=== PATIENT | female | born 1950 | race Caucasian/White ===

== ENCOUNTER → 2017-01-23 | Outpatient (CLI) | payer OTHER ==
[~2017-01-23] MED LIST: BIOT1CAP8 PO; CALCTAB5 PO; CYAN100T PO
== END | disposition home or self-care (01) ==
LOC: C.LABSPEC 17:16
PROVIDERS: ATTEND Nurse Practitioner Family
DX: N39.0 Urinary tract infection, site not specified (principal)

== ENCOUNTER → 2017-06-10 | Outpatient (CLI) | payer OTHER ==
--- NOTE | 2017-06-11 13:10 | MAMMOGRAPHY REPORT ---
BILATERAL DIGITAL SCREENING MAMMOGRAM WITH CAD: 06/10/2017 CLINICAL HISTORY: Routine screening. TECHNIQUE: Bilateral CC, MLO and repeat left CC views were obtained. Current study was also evaluate d with a Computer Aided Detection (CAD) system. COMPARISON: Comparison is made to exams dated: 06/02/2015 mammogram, 06/08/2016 mammogram, 06/01/2014 m ammogram, 05/27/2013 mammogram, 05/26/2012 mammogram, and 05/23/2011 mammogram - [facility] enter. BREAST COMPOSITION: There are scattered areas of fibroglandular density in both breasts. FINDINGS: There are minimal vascular calcifications in the breasts. No suspicious mass, architectura l distortion or cluster of suspicious microcalcifications is seen. IMPRESSION: ACR BI-RADS CATEGORY 1: NEGATIVE There is no mammographic evidence of malignancy. A 1 year screening mammogram is recommended. The pa tient will receive written notification of the results. Approximately 10% of breast cancers are not detected with mammography. A negative mammographic report should not delay biopsy if a clinically suggestive mass is present. Trina Campos M.D. ay/:06/10/2017 16:15:31 Digital Product Specialist: Carly MUNOZ(Sofia)(Rylie), [facility] letter sent: Normal 1/2 BI-RADS Code: ACR BI-RADS Category 1: Negative
== END | disposition home or self-care (01) ==
LOC: C.MAMM 15:32
PROVIDERS: ATTEND Family Medicine
DX: Z12.31 Encounter for screening mammogram for malignant neoplasm of breast (principal)

== ENCOUNTER → 2017-11-21 | Outpatient (CLI) | payer OTHER | END | disposition home or self-care (01) | LOC: C.LABSPEC 14:09 | PROVIDERS: ATTEND Urology | DX: N39.0 Urinary tract infection, site not specified (principal) ==

== ENCOUNTER → 2017-11-21 | Outpatient (CLI) | payer OTHER ==
--- NOTE | 2017-11-21 12:22 | DIAGNOSTIC IMAGING REPORT ---
KUB CLINICAL HISTORY: Urinary tract infection. FINDINGS: 2 AP abdominal radiographs are compared to study dated 10/12/2016 and correlated with abdominal CT dated 09/01/2006. There is a nonobstructed abdominal bowel gas pattern noting moderate constipation. This degrades assessment of the renal shadows. A punctate nonobstructing calculus projects over the left lower pole. No additional renal calculi are identified on today's examination. No calcifications are seen along the course of the ureters. There is mild to moderate lumbosacral spondylosis. The bony pelvis appears intact. Sclerotic change is identified in the pubic symphysis. Hernia mesh projects over the upper abdomen. IMPRESSION: 1. Nonobstructed abdominal bowel gas pattern noting moderate colonic fecal retention. This degrades assessment of the renal shadows. 2. A punctate nonobstructing calculus projects over the left lower pole. Electronically signed by: Gustavo Palmer M.D. 11/21/2017 12:21 PM Dictated Date/Time: 11/21/2017 12:19 PM
== END | disposition home or self-care (01) ==
LOC: C.RAD 11:57
PROVIDERS: ATTEND Urology
DX: N39.0 Urinary tract infection, site not specified (principal)

== ENCOUNTER → 2018-06-12 | Outpatient (CLI) | payer OTHER ==
--- NOTE | 2018-06-13 14:35 | MAMMOGRAPHY REPORT ---
BILATERAL DIGITAL SCREENING MAMMOGRAM TOMOSYNTHESIS WITH CAD: 06/12/2018 CLINICAL HISTORY: Routine screening. TECHNIQUE: The study was acquired using full field digital technology and interpreted from soft copy. Breast tomosynthesis in addition to standard 2D mammography was performed. Current study was also ev aluated with a Computer Aided Detection (CAD) system. COMPARISON: Comparison is made to exams dated: 06/10/2017 mammogram, 06/08/2016 mammogram, 06/02/2015 m ammogram, 06/01/2014 mammogram, 05/27/2013 mammogram, and 05/26/2012 mammogram - [facility] enter. BREAST COMPOSITION: There are scattered areas of fibroglandular density in both breasts. FINDINGS: No suspicious masses, calcifications, or areas of architectural distortion are noted in either breast . There has been no significant interval change compared to prior exams. IMPRESSION: ACR BI-RADS CATEGORY 1: NEGATIVE There is no mammographic evidence of malignancy. A 1 year screening mammogram is recommended.( 019) The patient will receive written notification of the results. Some breast cancers are not detected with mammography. A negative mammographic report should not floridalma y biopsy if a clinically suggestive mass is present. Brittney Cook M.D. ah/:06/12/2018 15:48:20 Information Systems Security Analyst: RT Rob(Sofia)(M), [facility] letter sent: Normal 1/2 BI-RADS Code: ACR BI-RADS Category 1: Negative
== END | disposition home or self-care (01) ==
LOC: C.MAMM 15:05
PROVIDERS: ATTEND Family Medicine
DX: Z12.31 Encounter for screening mammogram for malignant neoplasm of breast (principal)

== ENCOUNTER 2018-07-08 08:07 | Emergency (ER) | payer OTHER ==
[~2018-07-08] VITALS: Ht 154.9 cm; Wt 83.9 kg
[2018-07-08 08:08] VITALS: TEMP 36.8; Ht 154.9 cm; Wt 83.9 kg
--- NOTE | 2018-07-08 09:06 | DIAGNOSTIC IMAGING REPORT ---
L-SPINE MIN 4 VIEWS ROUTINE HISTORY: Pain. Neuropathy. Bilateral lumbar radiculitis COMPARISON: None. FINDINGS: There is no fracture. Minimal grade 1 anterolisthesis L5 on S1. This appears to be secondary to degenerative changes of the posterior elements. Degenerative intervertebral this change considered moderate and rather significant L5-S1. IMPRESSION: Moderate to significant degenerative disc changes L5-S1 with a minimal grade 1 anterolisthesis. Remainder the study shows mild degenerative disc change. No acute process. The above report was generated using voice recognition software. It may contain grammatical, syntax or spelling errors. Electronically signed by: Julisu Weaver M.D. 07/08/2018 9:05 AM Dictated Date/Time: 07/08/2018 9:04 AM
[2018-07-08] MEDS ORDERED: MULT-506 PO (09:18)
--- NOTE | 2018-07-08 09:21 | EMERGENCY ROOM VISIT NOTE ---
ED Visit Note First contact with patient: 08:26 I have personally seen and evaluated the patient with the physician custody assistant. I agree with the diagnostic/management decisions and have personally been involved in these decisions and agree with the diagnosis.
[2018-07-08] MEDS ORDERED: TRAM-10 PO ×2 (09:22→09:24)
[2018-07-08 09:32] VITALS: BP 192/85; PULSE 58; O2SAT 98
--- NOTE | 2018-07-08 09:47 | EMERGENCY ROOM VISIT NOTE ---
History First contact with patient: 08:26 Chief Complaint: BACK PAIN Stated Complaint: BACK PAIN, NUMBS MY LEGS History of Present Illness The patient is a 68 year old female who presents to the Emergency Room with complaints of intermittent lower back pain radiating down both legs to the ankles. The patient reports no recent injuries to her back. 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 She does report a history of degenerative disc disease. She has seen a chiropractor many years ago. She denies history of osteoporosis. She has not noticed any recent urinary/bowel incontinence, saddle anesthesias or lower extremity weakness. She reports that ibuprofen does help with her pain, and currently rates her discomfort a 5 out of 10. Review of Systems 10 system review was performed and was negative except for pertinent positives and negatives as indicated in history of present illness Past Medical/Surgical History Medical Problems: (1) Calculus Of Kidney (2) Lumbar radiculitis Surgical Problems: (1) History of hernia repair (2) History of hysterectomy Social History Smoking Status: Never Smoker Alcohol Use: none Marital Status: Occupation Status: employed Current/Historical Medications Scheduled Multivitamin (Multivitamin), 1 TAB PO QAM Scheduled PRN Tramadol (Ultram), 1 TAB PO Q4H PRN for Pain Physical Exam Vital Signs Date Time Temp Pulse Resp B/P (MAP) Pulse Ox O2 Delivery O2 Flow Rate FiO2 07/08/18 08:08 36.8 58 18 210/109 97 Room Air Physical Exam CONSTITUTIONAL: Healthy and well nourished. Alert and oriented X 3 with positive affect. Patient does not appear in any acute distress. HEENT: Normocephalic, atraumatic. Pupils equal, round and reactive. No scleral icterus or conjunctival injection/pallor. NECK: Full active range of motion without discomfort. No nuchal rigidity. RESPIRATORY: Clear to auscultation bilaterally with no wheezing, crackles, rhonchi or stridor. CARDIOVASCULAR: Regular rate and rhythm with no murmurs, rubs or gallops. GASTROINTESTINAL: Bowel sounds present in all quadrants. Abdomen is soft and nontender to palpation. Negative CVA tenderness. MUSCULOSKELETAL: Examination shows tenderness to palpation of bilateral SI joints. Negative logroll bilaterally. Negative straight leg raise bilaterally. Ankle plantar/dorsiflexion strength is 5 out of 5 and symmetric bilaterally. Pedal pulses are intact. INTEGUMENTARY: No rash or other significant dermatologic conditions noted. NEUROLOGIC: No focal neurologic deficits noted. Lower extremity deep tendon reflexes are 2+ and symmetric bilaterally. Medical Decision & Procedures ER Provider Diagnostic Interpretation: My interpretation of lumbar spine x-rays shows notable disc degeneration at L5- S1 with a grade 1-2 spondylolisthesis. No acute compression fracture is noted. Radiologist report is as follows: L-SPINE MIN 4 VIEWS ROUTINE HISTORY: Pain. Neuropathy. Bilateral lumbar radiculitis COMPARISON: None. FINDINGS: There is no fracture. Minimal grade 1 anterolisthesis L5 on S1. This appears to be secondary to degenerative changes of the posterior elements. Degenerative intervertebral this change considered moderate and rather significant L5-S1. IMPRESSION: Moderate to significant degenerative disc changes L5-S1 with a minimal grade 1 anterolisthesis. Remainder the study shows mild degenerative disc change. No acute process. ED Course Patient history and physical exam were performed. Nurse's notes were reviewed. Vital signs were reviewed, showing an elevated blood pressure of 210/109. Patient denies any prior history of hypertension. The patient refused any analgesics. X-rays of spine shows degenerative changes at L5-S1. Findings were discussed with the patient. The patient was encouraged alternate ibuprofen and Tylenol as needed for pain. She will be provided a prescription for Ultram if needed for breakthrough pain. Back pain instructional handouts were provided. The patient was instructed to follow-up with her PCP for recheck. The patient was happy with plan of care, voiced understanding of all discharge instructions, and rated her pain a 4 out of 10 at the conclusion of my exam. The patient was also seen and examined by Dr. Corral, ED attending physician, who agrees with workup and plan of care. Medical Decision Medication Reconcilliation Current Medication List: was personally reviewed by me Blood Pressure Screening Patient's blood pressure: Elevated blood pressure Blood pressure disposition: Referred to PCP Impression Primary Impression: Lumbar radiculitis Additional Impressions: Lumbar degenerative disc disease Elevated blood pressure reading Departure Information Prescriptions Tramadol (Ultram) 50 Mg Tab 1 TAB PO Q4H Y for Pain, #15 TAB For Initial Treatment Prov: Armando Moreno PA 07/08/18 Referrals Stevie Ennis M.D. (PCP) Patient Instructions My [facility] Problem Qualifiers
== END 2018-07-08 09:32 | disposition home or self-care (01) ==
LOC: C.EDB 08:08 → C.EDA 09:32
DX: M54.16 Radiculopathy, lumbar region (principal); M51.37 Other intervertebral disc degeneration, lumbosacral region; R03.0 Elevated blood-pressure reading, without diagnosis of hypertension

== ENCOUNTER 2019-05-16 04:13 | Inpatient (IN) ==
--- OUTSIDE RECORDS SUMMARY | 2019-05-16 04:16 | External Medical Summary | Continuity of Care Document ---
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 Refills: 0 Aspirin EC 325 MG Oral Tablet Delayed Release; as needed , M .D. Refills: 0 Multivitamins TABS , M.D. Refills: 0 Procedures History of Hysterectomy Status: Complete d History of Hernia Repair Status: Complet ed History of Renal Lithotripsy Status: Com pleted Immunizations Immunizations not documented Family History Unknown Family Member Family history of Diabetes Mellitus (V18.0) Status: Active Comments: Family History Family history of Heart Disease (V17.49) Status: Active Comments: Family History Family history of Hypertension (V17.49) Status: Active Comments: Family History Family history of Nephrolithiasis Status: Active Commen ts: Family History Father Family history of emphysema (V17.6) (Z82.5) Status: Active Mother Family history of Heart disease (429.9) (I51.9) Status: Acti ve Social History - Smoking Status Never smoker Plan of Treatment Planned Observations Planned Goals not documented Results No Known Results Results not documented Encounters Appointment; Lukas Tsai M.D. 25-Dec-2018 13:40 Encounter Diagnosis: Problem not documented Appointment; Oliver Campos M.D. 21-Nov-2017 9:00 Encounter Diagnosis: Problem not documented
[2019-05-16] MEDS ORDERED: KETOROLAC 30 MG/ML VIAL IV STA (04:37)
[2019-05-16] MEDS ORDERED: ONDANSETRON INJ 2 MG/ML 2 ML VIAL IV STA (04:37)
[2019-05-16] MEDS ORDERED: SODIUM CHLORIDE 0.9% 1000ML 1,000 ML IV ONE (04:37)
[2019-05-16] MEDS ORDERED: MoRPHine SULFATE 4 MG/ML 1 ML CARP\\VIAL IV STA (04:37)
[2019-05-16 04:48] LABS: Basophils # (auto) 0.02 K/uL (0-0.2); Basophils % (auto) 0.4 %; Eosinophils # (auto) 0.23 K/uL (0-0.5); Eosinophils % (auto) 4.1 %; Hematocrit (blood only) 40.4 % (37-47); Hemoglobin 13.6 g/dL (12.0-16.0); Immature Granulocytes # (auto) 0.01 K/uL (0.00-0.02); Immature Granulocytes % (auto) 0.2 %; Lymphocytes # (auto) 1.19 K/uL (1.2-3.4); Lymphocytes % (auto) 21.3 %; Mean Corpuscular Hgb Conc 33.7 g/dL (32-36); Mean Corpuscular Volume 85.6 fL (80-100); Mean Platelet Volume 9.9 fL (7.4-10.4); Monocytes # (auto) 0.63 K/uL (0.11-0.59); Monocytes % (auto) 11.3 %; Neutrophils # (auto) 3.51 K/uL (1.4-6.5); Neutrophils % (auto) 62.7 %; Platelet Count 188 K/uL (130-400); RDW Coefficient of Variation 13.2 % (11.5-14.5); RDW Standard Deviation 41.1 fL (36.4-46.3); Red Blood Count 4.72 M/uL (4.2-5.4); White Blood Count 5.59 K/uL (4.8-10.8)
[2019-05-16 04:49] LABS: Appearance Urine Cloudy (Clear); Bacteria Urine Automated 4+ (Negative); Bilirubin Urine Negative (Negative); Blood Urine 3+ (Negative); Color Urine Yellow; Epithelial Cell Urine Auto >30 /lpf (0-5); Glucose Urine UA Negative (Negative); Ketones Urine Negative (Negative); Leukocyte Esterase Urine Trace (Negative); Nitrite Urine Positive (Negative); Protein Urine Negative (Negative); RBC Urine Automated >30 /hpf (0-4); Specific Gravity Urine 1.014 (1.000-1.030); Urobilinogen Urine Negative (Negative)
[2019-05-16 05:05] LABS: Alanine Aminotransferase 19 U/L (12-78); Albumin Level 3.7 gm/dl (3.4-5.0); Aspartate Aminotransferase 16 U/L (15-37); BUN Creatinine Ratio 16.2 (10-20); Blood Urea Nitrogen 15 mg/dl (7-18); Calcium 8.8 mg/dl (8.5-10.1); Carbon Dioxide 26 mmol/L (21-32); Chloride 109 mmol/L (98-107); Est GFR (African American) 71.8; Glucose 129 mg/dl (70-99); Potassium 3.9 mmol/L (3.5-5.1); Sodium 140 mmol/L (136-145)
[2019-05-16 05:08] LABS: Alkaline Phosphatase 100 U/L (45-117); Bilirubin,Total 0.5 mg/dl (0.2-1); Globulin 3.7 gm/dl (2.5-4.0); Total Protein 7.4 gm/dl (6.4-8.2)
[2019-05-16] MEDS ORDERED: cefTRIAXone SODIUM 1,000 MG/50 ML BAG IV STA (05:29)
[2019-05-16] MEDS ORDERED: SODIUM CHLORIDE 0.9% 1000ML 1,000 ML IV SCH (05:30)
[2019-05-16] MEDS: TAMSULOSIN HCL 0.4 MG CAP PO SCH (05:57)
--- NOTE | 2019-05-16 06:02 | Emergency Department Note ---
Entered by Deandra Hull acting as a scribe for Flavia Chester DO History of Present Illness General Chief complaint: Flank Pain Stated complaint: POSSIBLE KIDNEY STONE, ABD. PAIN, NAUSEA, VOMITING Time Seen by Provider: 05/16/19 04:23 Source: patient History of Present Illness Onset (ago): hour(s) 5 Location: abdomen Severity: similar to prior episodes Pain Consistency: + constant Maximum Pain Intensity: 8 Quality: + other (Abdominal pain) Associated symptoms: + nausea/vomiting (Positive nausea. Negative vomiting. ) and + other (Positive abdominal pain. Negative dysuria. ) Treatments prior to arrival: none The patient is a 68 year old female who presents to the Emergency Department complaining of constant abdominal pain starting 5 hours ago. The patient reports that she has left sided abdominal pain. She states that she is nauseous. She explains that she has experienced this pain before and believes that she has a kidney stone. She states that when she last had a kidney stone it had to be surgically removed by Dr. Tsai [facility] urologist. She adds that she took no treatments [employer]AL[employer]OCIATE for her abdominal pain. The patient denies vomiting and dysuria. Home Medications Home Medications Medication Instructions Recorded Confirmed Type multivitamin 1 tab PO DAILY 05/16/19 05/16/19 History Allergies Allergy/AdvReac Type Severity Reaction Status Date / Time No Known Allergies Allergy Verified 05/16/19 04:43 Past Med/Surg History Medical History History of kidney stones Surgical History History of hernia repair (Resolved) History of hysterectomy (Resolved) Social History Feels Safe at Home: Yes Smoking Status: Never smoker Review of Systems See HPI for pertinent positives & negatives. and A total of 10 systems reviewed and were otherwise negative Physical Exam Vital Signs Vital Signs - 24 hr 05/16/19 04:18 05/16/19 04:52 05/16/19 05:04 Temperature 36.8 C Temperature Source Oral Sepsis Recent Fever Within 48 Hours No Sepsis New/Unexplained Change in Mental Status No Sepsis Action Taken by Nursing No Action Required Pulse Rate 68 Pulse Rate [Finger] 55 L Pulse Rhythm Regular Pulse Strength Normal Respiratory Rate 24 16 Respiratory Effort / Characteristics Non-Labored Spontaneous Non-Labored Spontaneous Respiratory Depth Normal Normal Respiratory Pattern Regular Blood Pressure 167/95 H Blood Pressure [Right Arm] 152/63 H Blood Pressure Mean 119 Blood Pressure Mean [Right Arm] 92 Blood Pressure Position Sitting Pulse Oximetry 97 92 Oxygen Delivery Method Room Air Room Air Room Air General: Patient appears uncomfortable and is unable to sit still. HEENT: Head - normocephalic and atraumatic Pupils are equal, round, and reactive to light. Extraocular eye muscles are intact, and sclera are anicteric. Nose - moist nasal mucosa without discharge. Mouth - moist buccal mucosa. Oropharynx is nonerythematous and there is no tonsillar exudate or edema noted. Neck: Supple; no JVD, nuchal rigidity, cervical lymphadenopathy. Heart: Regular rate and rhythm. There is a normal S1 and S2 with no murmurs, clicks, or gallops appreciated. Lungs: Clear to auscultation bilaterally with no wheezes, rales, or rhonchi. Abdomen: Soft, completely nontender, nondistended, with good bowel sounds. There are no palpable pulsatile masses or hepatosplenomegaly. There is no guarding, rigidity, or rebound noted. Back: Left CVA tenderness. Extremities: No evidence of cyanosis, clubbing, or edema. There are easily palpable peripheral pulses. Skin: warm and dry with good turgor and no rashes. Course 0432: The patient was evaluated in room A12B, and a complete history and physical examination were performed. Previous electronic medical records were reviewed. An IV lock was initiated and labs were drawn as above. 0448: NSS 1000ml 1000 mls @ 999 mls/hr IV, Toradol 30 mg IV, Zofran 4 mg IV, Morphine Sulfate 4 mg IV. The patient will go for a CT scan of the abdomen/pelvis. 0530: I updated the patient at this time. She states that she is more comfortable at this time. Blood cultures were obtained. 0539: Rocephin 1000 mg in 50 mls @ 100 mls/hr IV, NSS 1000ml 1000 mls @ 125 mls/hr IV. 0540: I discussed the patient's case with Dr. Gregory Patel hospitalist. He will evaluate the patient for further management. Consultations Consultation #1: I discussed the patient's case with Dr. Gregory Patel hospitalist. He will evaluate the patient for further management. Time: 05:40 Administered Medications Sodium Chloride (Nss 1000ml) 1,000 mls @ 125 mls/hr IV .Q8H ANYA Stop: 06/15/19 05:29 Last Admin: 05/16/19 05:40 Dose: 125 mls/hr Documented by: [id number] Tamsulosin HCl (Flomax) 0.4 mg PO DAILY ANYA Stop: 06/15/19 05:44 Last Admin: 05/16/19 05:57 Dose: 0.4 mg Documented by: [id number] Discontinued Medications Sodium Chloride (Nss 1000ml) 1,000 mls @ 999 mls/hr IV .Q1H1M ONE Stop: 05/16/19 05:37 Last Infusion: 05/16/19 05:39 Dose: 0 mls/hr Documented by: [id number] Admin: 05/16/19 04:48 Dose: 999 mls/hr Documented by: [id number] Ceftriaxone Sodium (Rocephin) 1,000 mg in 50 mls @ 100 mls/hr IV NOW STA Stop: 05/16/19 05:58 Last Admin: 05/16/19 05:39 Dose: 100 mls/hr Documented by: [id number] Ketorolac Tromethamine (Toradol) 30 mg IV NOW STA Stop: 05/16/19 04:38 Last Admin: 05/16/19 04:48 Dose: 30 mg Documented by: [id number] Morphine Sulfate (Morphine Sulfate) 4 mg IV NOW STA Stop: 05/16/19 04:38 Last Admin: 05/16/19 04:48 Dose: 4 mg Documented by: [id number] Ondansetron HCl (Zofran) 4 mg IV NOW STA Stop: 05/16/19 04:38 Last Admin: 05/16/19 04:48 Dose: 4 mg Documented by: [id number] Medical Decision Making Differential Diagnosis The patient is a 68 year old female who presents to the ED with constant abdominal pain starting 5 hours ago. Differential diagnosis includes pyelonephritis, ureteral colic and colitis among others. Medical Records Attestation: I reviewed the patient's medical records. Home Medications Current Medication List: was personally reviewed by me Laboratory Data Attestation: I reviewed the patient's lab results. Result diagrams: 05/16/19 04:41 05/16/19 04:41 Lab Results 05/16/19 05/16/19 05/16/19 Range/Units 04:30 04:41 04:41 WBC 5.59 (4.8-10.8) K/uL RBC 4.72 (4.2-5.4) M/uL Hgb 13.6 (12.0-16.0) g/dL Hct 40.4 (37-47) % MCV 85.6 (80-100) fL MCH 28.8 (25-34) pg MCHC 33.7 (32-36) g/dL RDW Std Deviation 41.1 (36.4-46.3) fL RDW Coeff of [place] 13.2 (11.5-14.5) % Plt Count 188 (130-400) K/uL MPV 9.9 (7.4-10.4) fL Immature Gran % (Auto) 0.2 % Neut % (Auto) 62.7 % Lymph % (Auto) 21.3 % [place] % (Auto) 11.3 % Eos % (Auto) 4.1 % Baso % (Auto) 0.4 % Immature Gran # (Auto) 0.01 (0.00-0.02) K/uL Neut # (Auto) 3.51 (1.4-6.5) K/uL Lymph # (Auto) 1.19 L (1.2-3.4) K/uL [place] # (Auto) 0.63 H (0.11-0.59) K/uL Eos # (Auto) 0.23 (0-0.5) K/uL Baso # (Auto) 0.02 (0-0.2) K/uL Sodium 140 (136-145) mmol/L Potassium 3.9 (3.5-5.1) mmol/L Chloride 109 H (98-107) mmol/L Carbon Dioxide 26 (21-32) mmol/L Anion Gap 5.0 (3-11) BUN 15 (7-18) mg/dl Creatinine 0.95 (0.6-1.2) mg/dl Est Cr Clr Drug Dosing Not Reportable Est GFR ( Amer) 71.8 Est GFR (Non-Af Amer) 62.0 BUN/Creatinine Ratio 16.2 (10-20) Glucose 129 H (70-99) mg/dl Calcium 8.8 (8.5-10.1) mg/dl Total Bilirubin 0.5 (0.2-1) mg/dl AST 16 (15-37) U/L ALT 19 (12-78) U/L Alkaline Phosphatase 100 (45-117) U/L Total Protein 7.4 (6.4-8.2) gm/dl Albumin 3.7 (3.4-5.0) gm/dl Globulin 3.7 (2.5-4.0) gm/dl Albumin/Globulin Ratio 1.0 (0.9-2) Urine Color Yellow Urine Appearance Cloudy A (Clear) Urine pH 7.0 (4.5-7.5) Ur Specific [place] 1.014 (1.000-1.030) Urine Protein Negative (Negative) Urine Glucose (UA) Negative (Negative) Urine Ketones Negative (Negative) Urine Blood 3+ H (Negative) Urine Nitrite Positive A (Negative) Urine Bilirubin Negative (Negative) Urine Urobilinogen Negative (Negative) Ur Leukocyte Esterase Trace H (Negative) Urine WBC (Auto) 10-30 H (0-5) /hpf Urine RBC (Auto) >30 H (0-4) /hpf U Hyaline Cast (Auto) 1-5 (0-5) /lpf U Epithel Cells (Auto) >30 H (0-5) /lpf Urine Bacteria (Auto) 4+ H (Negative) Ur Renal Epithelial Cell Not Reportable Imaging Data Radiologist's Impression: Radiology results as stated below per my review and the radiologist's interpretation: CT ABDOMEN & PELVS Without Contrast: 4 mm calculus at or just below the UPJ level on the left side. Mild left hydronephrosis is associated as well as mild left renal enlargement. Slight left perinephrenic stranding. These findings are likely obstructive but would correlate clinically to exclude any superimposed infection. Small cyst at the upper pole the left kidney. Distal colonic diverticulitis but no acute diverticulitis. No appendicitis. No free air, free fluid or other acute disease. Fat-containing small umbilical hernia and several small midline fat-containing supraumbilical hernias. Prior midline abdominal wall hernia. Hepatic cysts. Radiologist: Giuseppe Carter MD. Study ready at 0505 and initial results transmitted at 0522. Blood Pressure Blood Pressure Findings: Elevated blood pressure Blood Pressure Disposition: further management by hospitalist MDM Narrative The patient is a 68 year old female who presents to the ED with constant left- sided abdominal pain starting 5 hours ago. The patient has hematuria on urinalysis. She has a history of kidney stones. CT scan shows evidence of a 4 mm left-sided stone with some signs of obstruction and hydronephrosis. There is also concern for infection as there is some mike- nephric stranding in the urine appears to be infected. Patient was treated with IV Rocephin. She is comfortable after IV analgesia. I discussed the case with the [facility] Hospitalist and they will evaluate for further management. Impression & Plan Hydronephrosis with renal calculous obstruction, UTI (urinary tract infection) Discharge Plan Visit Data Chief Complaint: Flank Pain Stated Complaint: POSSIBLE KIDNEY STONE, ABD. PAIN, NAUSEA, VOMITING ED Provider: Flavia Chester Discharge Problem: Hydronephrosis with renal calculous obstruction, UTI (urinary tract infection) Patient Disposition: Being Evaluated by Hospitalist Forms Stand Alone Forms: My [facility] Prescriptions Prescriptions: No Action multivitamin Tablet 1 tab PO DAILY RF: 0 Referrals Referrals: Stevie Ennis MD [Primary Care Provider] - Discharge Problem: UTI (urinary tract infection) Qualifiers: Urinary tract infection type: site unspecified Hematuria presence: with hematuria Qualified Code(s): N39.0 - Urinary tract infection, site not specified The scribe's documentation has been prepared under my direction and personally reviewed by me in its entirety. I confirm that the note above accurately reflects all work, treatment, procedures, and medical decision making performed by me.
--- NOTE | 2019-05-16 06:19 | History & Physical Report ---
Date of Service May 16, 2019 Assessment & Plan (1) Complicated UTI (urinary tract infection): Recurrent obstructive uropathy urge/stress incontinence as per records. No sepsis for now hypertension, elevated secondary to discomfort Not on home maintenance medications mood disorder, stable off meds Hyperglycemia rule out DM GMF Follow urine cultures, IV Ceftriaxone Flomax trial, IVF Strain urine Urology consult RE obstructive uropathy Analgesia, may need initiation of maintenance antihypertensive medication if with persistent BP elevation check hemoglobin A1c DVT prophylaxis. Lovenox subcu Full code History of Present Illness Chief Complaint: Left flank pain Primary Care Provider: Stevie Ennis MD History obtained from patient, family, and records. Medical history significant for hypertension, urolithiasis, mood disorder, urge/stress incontinence as per records. Recent confinement August, for incarcerated non-strangulated ventral hernia. Patient roused from sleep around midnight with achy left flank pain similar to kidney stone pain. A lot of dry heaving, nausea. No emesis, no chest pain, no S OB. No fever, no chills, no gross hematuria. Admits to not drinking as much water she should. At the ER, patient given IV Ceftriaxone for UTI. Medical History as above Surgical History : ARIADNA, removal of kidney stones, tonsillectomy/adenoidectomy, hernia repair Family History : Diabetes, heart disease, stroke Personal/Social history : Non-smoker, no EtOH intake, retired from cleaning work Allergies Allergy/AdvReac Type Severity Reaction Status Date / Time No Known Allergies Allergy Verified 05/16/19 04:43 Home Medications Home Medications Medication Instructions Recorded Confirmed Type multivitamin 1 tab PO DAILY 05/16/19 05/16/19 History Past Med/Surg History Medical History History of kidney stones Surgical History History of hernia repair (Resolved) History of hysterectomy (Resolved) Social History Preferred Language: Malawian Communication Ability: Effective Check Examiner Required: No Beliefs That Will Affect Care: None Current Living Situation: Spouse Other Information That Helps Us Care for You: No Feels Safe at Home: Yes Safety Concerns: Feels Safe At This Time Smoking Status: Never smoker Do You Dip or Chew Tobacco: No Second Hand Exposure: No Tobacco Cessation Education Requested by Patient: No Hx Alcohol Use: No Hx Substance Use: No Review of Systems Review of Systems: As per HPI, all 10 systems reviewed, all other ROS negative Physical Exam Physical Exam: GENERAL: Comfortable, pleasant, obese no respiratory distress SKIN: Normal color, warm HEENT: [place] palpebral conjunctivae, no ptosis, dry buccal mucosa, erythematous spot on the right mouth angle NECK : Supple, short, no tenderness CHEST : CTA, no tenderness HEART : Bradycardic, no obvious murmurs ABDOMEN: Some distention, nontender BACK : Left flank tenderness EXTREMITIES : Bilateral LE swelling/varicosities (chronic as per patient), no LE tenderness, no other conspicuous deformities noted NEUROLOGIC : Coherent, no facial asymmetry, no other gross focality Results & Data Vital Signs (Past 12 Hours) Vital Signs Temp Pulse Pulse Resp BP BP Pulse Ox 05/16/19 05:04 55 L 16 152/63 H 92 05/16/19 04:18 36.8 C 68 24 167/95 H 97 Laboratory Results Laboratory Results WBC 5.59 K/uL (4.8-10.8) 05/16/19 04:41 RBC 4.72 M/uL (4.2-5.4) 05/16/19 04:41 Hgb 13.6 g/dL (12.0-16.0) 05/16/19 04:41 Hct 40.4 % (37-47) 05/16/19 04:41 MCV 85.6 fL (80-100) 05/16/19 04:41 MCH 28.8 pg (25-34) 05/16/19 04:41 MCHC 33.7 g/dL (32-36) 05/16/19 04:41 RDW Std Deviation 41.1 fL (36.4-46.3) 05/16/19 04:41 RDW Coeff of [place]on 13.2 % (11.5-14.5) 05/16/19 04:41 Plt Count 188 K/uL (130-400) 05/16/19 04:41 MPV 9.9 fL (7.4-10.4) 05/16/19 04:41 Immature Gran % (Auto) 0.2 % 05/16/19 04:41 Neut % (Auto) 62.7 % 05/16/19 04:41 Lymph % (Auto) 21.3 % 05/16/19 04:41 [place] % (Auto) 11.3 % 05/16/19 04:41 Eos % (Auto) 4.1 % 05/16/19 04:41 Baso % (Auto) 0.4 % 05/16/19 04:41 Immature Gran # (Auto) 0.01 K/uL (0.00-0.02) 05/16/19 04:41 Neut # (Auto) 3.51 K/uL (1.4-6.5) 05/16/19 04:41 Lymph # (Auto) 1.19 K/uL (1.2-3.4) L 05/16/19 04:41 [place] # (Auto) 0.63 K/uL (0.11-0.59) H 05/16/19 04:41 Eos # (Auto) 0.23 K/uL (0-0.5) 05/16/19 04:41 Baso # (Auto) 0.02 K/uL (0-0.2) 05/16/19 04:41 Sodium 140 mmol/L (136-145) 05/16/19 04:41 Potassium 3.9 mmol/L (3.5-5.1) 05/16/19 04:41 Chloride 109 mmol/L (98-107) H 05/16/19 04:41 Carbon Dioxide 26 mmol/L (21-32) 05/16/19 04:41 Anion Gap 5.0 (3-11) 05/16/19 04:41 BUN 15 mg/dl (7-18) 05/16/19 04:41 Creatinine 0.95 mg/dl (0.6-1.2) 05/16/19 04:41 Est Cr Clr Drug Dosing Not Reportable 05/16/19 04:41 Est GFR ( Amer) 71.8 05/16/19 04:41 Est GFR (Non-Af Amer) 62.0 05/16/19 04:41 BUN/Creatinine Ratio 16.2 (10-20) 05/16/19 04:41 Glucose 129 mg/dl (70-99) H 05/16/19 04:41 Calcium 8.8 mg/dl (8.5-10.1) 05/16/19 04:41 Total Bilirubin 0.5 mg/dl (0.2-1) 05/16/19 04:41 AST 16 U/L (15-37) 05/16/19 04:41 ALT 19 U/L (12-78) 05/16/19 04:41 Alkaline Phosphatase 100 U/L (45-117) 05/16/19 04:41 Total Protein 7.4 gm/dl (6.4-8.2) 05/16/19 04:41 Albumin 3.7 gm/dl (3.4-5.0) 05/16/19 04:41 Globulin 3.7 gm/dl (2.5-4.0) 05/16/19 04:41 Albumin/Globulin Ratio 1.0 (0.9-2) 05/16/19 04:41 Urine Color Yellow 05/16/19 04:30 Urine Appearance Cloudy (Clear) A 05/16/19 04:30 Urine pH 7.0 (4.5-7.5) 05/16/19 04:30 Ur Specific [place] 1.014 (1.000-1.030) 05/16/19 04:30 Urine Protein Negative (Negative) 05/16/19 04:30 Urine Glucose (UA) Negative (Negative) 05/16/19 04:30 Urine Ketones Negative (Negative) 05/16/19 04:30 Urine Blood 3+ (Negative) H 05/16/19 04:30 Urine Nitrite Positive (Negative) A 05/16/19 04:30 Urine Bilirubin Negative (Negative) 05/16/19 04:30 Urine Urobilinogen Negative (Negative) 05/16/19 04:30 Ur Leukocyte Esterase Trace (Negative) H 05/16/19 04:30 Urine WBC (Auto) 10-30 /hpf (0-5) H 05/16/19 04:30 Urine RBC (Auto) >30 /hpf (0-4) H 05/16/19 04:30 U Hyaline Cast (Auto) 1-5 /lpf (0-5) 05/16/19 04:30 U Epithel Cells (Auto) >30 /lpf (0-5) H 05/16/19 04:30 Urine Bacteria (Auto) 4+ (Negative) H 05/16/19 04:30 Ur Renal Epithelial Cell Not Reportable 05/16/19 04:[address] abdomen pelvis initial read: 4 mm calculus at or just below the UPJ level on the left side, mild left hydronephrosis, mild left renal enlargement, slight left perinephric stranding. EKG as per my interpretation: Rate 50, sinus bradycardia, no ischemia
[2019-05-16 06:45] LABS: Magnesium 2.2 mg/dl (1.8-2.4)
[2019-05-16 06:58] LABS: T4 Free Thyroxine 1.09 ng/dl (0.8-1.6)
[2019-05-16] MEDS ORDERED: LORazepam 0.5 MG/1 ML VIAL IV PRN (07:14)
[2019-05-16] MEDS ORDERED: ACETAMINOPHEN 325 MG TAB PO PRN (07:14)
[2019-05-16] MEDS ORDERED: MoRPHine SULFATE 4 MG/ML 1 ML CARP\\VIAL IV PRN (07:14)
[2019-05-16] MEDS ORDERED: PROMETHAZINE HCL 12.5 MG in SODIUM CHLORIDE 0.9% 50 ML IV PRN (07:14)
[2019-05-16 07:25] LABS: Estimated Average Glucose 123 mg/dl; Hemoglobin A1C 5.9 % (4.5-5.6)
--- NOTE | 2019-05-16 07:29 | CT Scan Report ---
ABDOMEN AND PELVIS CT WITHOUT CONTRAST CT DOSE: 697.98 mGy.cm HISTORY: Left flank pain. eval for left sided stone TECHNIQUE: Multiaxial CT images of the abdomen and pelvis were performed without contrast. A dose lo wering technique was utilized adhering to the principles of ALARA. COMPARISON STUDY: Abdomen and pelvis CT 09/01/2006. FINDINGS: There is a 3 mm obstructing stone at the left ureteropelvic junction resulting in mild left hydronephrosis. Bilateral renal peripelvic cysts are noted. No additional renal calculi. The bladder is unremarkable. The uterus is surgically absent. Mild pelvic floor collapse. Colonic diverticulosis . No bowel wall thickening or obstruction. Normal appendix. Prior mesh repair of a midline ventral he rnia. There is a small fat-containing supraumbilical hernia inferior to the mesh site. No retroperito sadie lymphadenopathy. A 1.9 cm hypodense lesion within the left kidney. Multiple scattered hypodense lesions seen throughout the liver. These are technically indeterminate on this noncontrast study but favor cysts. The unenhanced gallbladder, spleen, adrenal glands are unremarkable. A 9 mm hypodense le lionel seen along the inferior aspect of the pancreatic tail on image 141. IMPRESSION: 1. A 3 mm obstructing stone at the left ureteropelvic junction resulting in mild left hydronephrosis. 2. A 9 mm hypodense lesion seen along the inferior aspect of the pancreatic tail. 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 Follow-up nonemergent pancreatic MRI can be use d for confirmation. 3. Additional findings as described above. Electronically signed by: Kyle Romero M.D. 05/16/2019 7:28 AM
[2019-05-16] MEDS: LACTATED RINGER'S 1,000 ML IV SCH ×2 (07:35→17:33)
[2019-05-16] MEDS ORDERED: PNEUMOCOCCAL ADMINISTRATION CHARGE ONE (07:45)
[2019-05-16] MEDS ORDERED: PNEUMOCOCCAL POLYSACCHARIDES 25 MCG/0.5 ML VIAL/SYR IM ONE (07:45)
[2019-05-16 08:11] LABS: Prothrombin Time 10.3 Seconds (9.0-12.0)
[2019-05-16] MEDS: ENOXAPARIN INJ 30 MG/0.3 ML SYR SQ SCH (09:13)
[2019-05-16] MEDS: MULTIVITAMIN TAB PO SCH (09:14)
--- NOTE | 2019-05-16 10:21 | Urology Consultation ---
Date of Consultation May 16, 2019 Assessment & Plan (1) Complicated UTI (urinary tract infection): 3 mm stone on left in proximal ureter with mild hydro. UTI on UA. History of stones and intervention in past. NO major fevers or chills. Did have significant pain and nausea. Has improved since admission with meds and PRN coverage. Discussed options at length. Discussed intervention. Discussed stent. Risks and benefits discussed. All history reviewed. Imaging reviewed and interpretted by myself. (2) Hydronephrosis with renal calculous obstruction: History of Present Illness Attending Physician: Loc Lepe MD History of Present Illness Patient with sudden onset of severe pain in flank and groin in waves. Found to have positive UA. No fevers in Hospital. Ill feelings. NO major bleeding. On abx. CT shows 3 mm stone with mild hydro. NO severe episodes. Pain meds and PRN helping with symptoms. Better controlled. Nausea had been severe. Allergies Allergy/AdvReac Type Severity Reaction Status Date / Time No Known Allergies Allergy Verified 05/16/19 04:43 Home Medications Home Medications Medication Instructions Recorded Confirmed Type multivitamin 1 tab PO DAILY 05/16/19 05/16/19 History Patient History Medical History History of kidney stones Surgical History History of hernia repair (Resolved) History of hysterectomy (Resolved) Social History Preferred Language: Mauritian Communication Ability: Effective Regulator Operator Required: No Beliefs That Will Affect Care: None Current Living Situation: Spouse Other Information That Helps Us Care for You: No Feels Safe at Home: Yes Safety Concerns: Feels Safe At This Time Smoking Status: Never smoker Do You Dip or Chew Tobacco: No Second Hand Exposure: No Tobacco Cessation Education Requested by Patient: No Hx Alcohol Use: No Hx Substance Use: No Review of Systems Review of Systems: All systems reviewed & are unremarkable except as noted in HPI & below Physical Exam Constitutional: well developed and well nourished; no acute distress and not ill appearing Eyes: eyes not dysmorphic and no conjunctival abnormality ENMT: Ears: no hearing impairment Nose: no external nose abnormality Mouth: no lip abnormality Neck: trachea midline; no tracheal deviation Respiratory: normal respiratory effort; no respiratory distress and no labored breathing Cardiovascular: Rate/Rhythm: not tachycardic Gastrointestinal (Abdomen): Percussion/Palpation: abdomen nontender, no guarding and abdomen not rigid Musculoskeletal: Spine: normal cervical ROM Extremities: full ROM of extremities Skin: no rashes and no lesions Neurologic: normal touch/pain/proprioception and awake; + CN's not intact and not confused Speech / Cognition: normal speech Psychiatric: A+Ox3, euthymic affect Orientation: alert and oriented x 3 Lymphatic: no lymphadenopathy Results & Data Vital Signs (Past 12 Hours) Vital Signs Temp Pulse Pulse Resp BP BP BP 05/16/19 08:12 61 18 133/74 05/16/19 08:10 133/74 05/16/19 07:15 36.4 C L 61 16 208/77 H 05/16/19 06:34 57 L 16 152/84 H 05/16/19 05:04 55 L 16 152/63 H 05/16/19 04:18 36.8 C 68 24 167/95 H Pulse Ox 05/16/19 08:12 98 05/16/19 08:10 05/16/19 07:15 91 05/16/19 06:34 92 05/16/19 05:04 92 05/16/19 04:18 97
[2019-05-17] MEDS ORDERED: LACTATED RINGER'S 1,000 ML IV STA (00:50)
[2019-05-17] MEDS ORDERED: cefTRIAXone SODIUM 1,000 MG in DEXTROSE 5% 50 ML IV SCH (05:30)
[2019-05-17 05:52] LABS: Basophils # (auto) 0.02 K/uL (0-0.2); Basophils % (auto) 0.3 %; Eosinophils # (auto) 0.24 K/uL (0-0.5); Eosinophils % (auto) 3.9 %; Hematocrit (blood only) 35.9 % (37-47); Hemoglobin 11.6 g/dL (12.0-16.0); Immature Granulocytes # (auto) 0.01 K/uL (0.00-0.02); Immature Granulocytes % (auto) 0.2 %; Lymphocytes # (auto) 1.21 K/uL (1.2-3.4); Lymphocytes % (auto) 19.9 %; Mean Corpuscular Hgb Conc 32.3 g/dL (32-36); Mean Corpuscular Volume 88.6 fL (80-100); Mean Platelet Volume 10.5 fL (7.4-10.4); Monocytes # (auto) 0.61 K/uL (0.11-0.59); Neutrophils % (auto) 65.7 %; Platelet Count 158 K/uL (130-400); RDW Coefficient of Variation 13.3 % (11.5-14.5); RDW Standard Deviation 43.3 fL (36.4-46.3); Red Blood Count 4.05 M/uL (4.2-5.4); White Blood Count 6.09 K/uL (4.8-10.8)
[2019-05-17 06:26] LABS: BUN Creatinine Ratio 18.3 (10-20); Calcium 8.1 mg/dl (8.5-10.1); Creatinine Clr Calc Pharmacy 64.1 ml/min; Est GFR (Non-African American) 69.9
--- NOTE | 2019-05-17 07:09 | XRay Report ---
KUB HISTORY: Follow up study in a patient with history of kidney stones Stone COMPARISON: CT abdomen and pelvis 05/16/2019 FINDINGS: The bowel gas pattern is non-obstructive. There is no organomegaly. Previously described 3 mm obstructing calculus of the left ureteropelvic junction is not definitively seen. Please note how ever that the renal shadows are mostly obscured by bowel gas. Prior ventral abdominal wall herniorrha phy. Moderate formed stool about the right hemicolon. No pneumoperitoneum or pneumatosis. No fracture . IMPRESSION: 1. Previously noted obstructing left UPJ calculus is not definitively seen. Please note however that the renal shadows are partially obscured by bowel gas. 2. Moderate formed stool of the right hemicolon. Electronically signed by: Edison Ritter M.D. 05/17/2019 7:08 AM
[2019-05-17] MEDS: MULTIVITAMIN TAB PO SCH (09:09)
[2019-05-17] MEDS: TAMSULOSIN HCL 0.4 MG CAP PO SCH (09:09)
[2019-05-17] MEDS: ENOXAPARIN INJ 30 MG/0.3 ML SYR SQ SCH (09:09)
--- NOTE | 2019-05-17 12:28 | Hospitalist Progress Note ---
Date of Service May 17, 2019 Assessment & Plan (1) Hydronephrosis with renal calculous obstruction: Presented with left flank pain. CT demonstrated 3 mm obstructing stone at left UP junction with hydronephrosis. Associated UTI as discussed below. Received IV fluids and tamsulosin. Passed stone- sent for analysis. (2) Urinary tract infection: UA showed leukocyte esterase, nitrites, WBC's, bacteria. Received IV ceftriaxone. Urine culture growing E coli, sensitivities pending. Discharge on TMP / sulfa. (3) Abnormal CT of the abdomen: CT abdomen and pelvis performed for evaluation of ureteral calculus. Incidental finding: "A 9 mm hypodense lesion seen along the inferior aspect of the pancreatic tail. 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 Follow-up nonemergent pancreatic MRI can be used for confirmation." Discussed with patient. Will ask PCP to schedule outpatient MRI and arrange for follow-up if indicated. (4) Bradycardia: HR as low as 47. Asymptomatic. EKG demonstrate sinus bradycardia. Not on any rate-slowing meds. (5) DVT prophylaxis: Received enoxaparin. Ambulating. (6) Discharge planning issues: Discharge to home. Family Medicine follow-up with Dr. Ennis. Subjective Recheck for ureteral calculus, UTI. Patient seen in her room around 09:20. Feels much better. Left flank pain resolved. No fever, chills. No dysuria or hematuria. No nausea, vomiting, diarrhea. No CP or SOB. Physical Exam Constitutional: no acute distress Respiratory: no respiratory distress Auscultation: lungs clear to auscultation bilaterally Cardiovascular: Rate/Rhythm: regular rate and regular rhythm Vessels: no JVD Extremities: no calf tenderness and no edema Gastrointestinal (Abdomen): normal bowel sounds, soft, nontender, no hepatosplenomegaly no CVAT Skin: no rashes, warm and dry Psychiatric: Orientation: alert and oriented x 3 Results & Data Vital Signs (Past 12 Hours) Vital Signs Temp Pulse Resp BP Pulse Ox 05/17/19 07:13 36.6 C 47 L 15 154/80 H 95 Laboratory Results Laboratory Results - last 24 hr 05/16/19 05/17/19 05/17/19 23:30 05:23 05:23 WBC 6.09 RBC 4.05 L Hgb 11.6 L Hct 35.9 L MCV 88.6 MCH 28.6 MCHC 32.3 RDW Std Deviation 43.3 RDW Coeff of [place]on 13.3 Plt Count 158 MPV 10.5 H Immature Gran % (Auto) 0.2 Neut % (Auto) 65.7 Lymph % (Auto) 19.9 [place] % (Auto) 10.0 Eos % (Auto) 3.9 Baso % (Auto) 0.3 Immature Gran # (Auto) 0.01 Neut # (Auto) 4.00 Lymph # (Auto) 1.21 [place] # (Auto) 0.61 H Eos # (Auto) 0.24 Baso # (Auto) 0.02 Sodium 138 Potassium 4.0 Chloride 107 Carbon Dioxide 27 Anion Gap 4.0 BUN 16 Creatinine 0.86 Est Cr Clr Drug Dosing 64.1 Est GFR ( Amer) 81.0 Est GFR (Non-Af Amer) 69.9 BUN/Creatinine Ratio 18.3 Glucose 91 Calcium 8.1 L Stone Source Pending Stone Weight Pending Stone Composition Pending Stone Composition 2 Pending Major Stone Nidus Pending Laboratory Results - last 24 hr 05/16/19 05/17/19 05/17/19 23:30 05:23 05:23 WBC 6.09 RBC 4.05 L Hgb 11.6 L Hct 35.9 L MCV 88.6 MCH 28.6 MCHC 32.3 RDW Std Deviation 43.3 RDW Coeff of [place] 13.3 Plt Count 158 MPV 10.5 H Immature Gran % (Auto) 0.2 Neut % (Auto) 65.7 Lymph % (Auto) 19.9 [place] % (Auto) 10.0 Eos % (Auto) 3.9 Baso % (Auto) 0.3 Immature Gran # (Auto) 0.01 Neut # (Auto) 4.00 Lymph # (Auto) 1.21 [place] # (Auto) 0.61 H Eos # (Auto) 0.24 Baso # (Auto) 0.02 Sodium 138 Potassium 4.0 Chloride 107 Carbon Dioxide 27 Anion Gap 4.0 BUN 16 Creatinine 0.86 Est Cr Clr Drug Dosing 64.1 Est GFR ( Amer) 81.0 Est GFR (Non-Af Amer) 69.9 BUN/Creatinine Ratio 18.3 Glucose 91 Calcium 8.1 L Stone Source Pending Stone Weight Pending Stone Composition Pending Stone Composition 2 Pending Major Stone Nidus Pending Microbiology 07/06/19 04:30 Urine,Clean Catch Urine Culture - Preliminary Escherichia coli 05/16/19 05:57 Blood Aerobic Blood Culture - Preliminary No growth in Aerobic bottle after 24 hours. 05/16/19 05:57 Blood Anaerobic Blood Culture - Preliminary No growth in Anaerobic bottle after 24 hours. 05/16/19 05:52 Blood Aerobic Blood Culture - Preliminary No growth in Aerobic bottle after 24 hours. 05/16/19 05:52 Blood Anaerobic Blood Culture - Preliminary No growth in Anaerobic bottle after 24 hours.
--- NOTE | 2019-05-17 19:23 | Discharge Summary ---
Date of Service Date of Admission: 05/16/19 Date of Discharge: 05/17/19 Admission HPI Per Admitting Provider History obtained from patient, family, and records. Medical history significant for hypertension, urolithiasis, mood disorder, urge/stress incontinence as per records. Recent confinement August, for incarcerated non-strangulated ventral hernia. Patient roused from sleep around midnight with achy left flank pain similar to kidney stone pain. A lot of dry heaving, nausea. No emesis, no chest pain, no S OB. No fever, no chills, no gross hematuria. Admits to not drinking as much water she should. At the ER, patient given IV Ceftriaxone for UTI. Admission Exam Per Admitting Provider GENERAL: Comfortable, pleasant, obese no respiratory distress SKIN: Normal color, warm HEENT: [place] palpebral conjunctivae, no ptosis, dry buccal mucosa, erythematous spot on the right mouth angle NECK : Supple, short, no tenderness CHEST : CTA, no tenderness HEART : Bradycardic, no obvious murmurs ABDOMEN: Some distention, nontender BACK : Left flank tenderness EXTREMITIES : Bilateral LE swelling/varicosities (chronic as per patient), no LE tenderness, no other conspicuous deformities noted NEUROLOGIC : Coherent, no facial asymmetry, no other gross focality Principal Diagnosis left ureteral calculus with hydronephrosis and urinary tract infection OTHER NEW / ACUTE DIAGNOSES: mass tail of pancreas (suspected small side branch intraductal papillary mucinous neoplasm, MRI recommended for follow-up) Discharge Data Allergies Allergy/AdvReac Type Severity Reaction Status Date / Time No Known Allergies Allergy Verified 05/16/19 04:43 Consultations 05/16/19 07:14 Consult Urology Routine Procedures Performed CT ABDOMEN & PELVIS IMPRESSION: 1. A 3 mm obstructing stone at the left ureteropelvic junction resulting in mild left hydronephrosis. 2. A 9 mm hypodense lesion seen along the inferior aspect of the pancreatic tail. 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 Follow-up nonemergent pancreatic MRI can be used for confirmation. 3. Additional findings as described above. Electronically signed by: Kyle Romero M.D. 05/16/2019 7:28 AM Ordered Studies 05/16/19 04:37 CT abd pelvis wo con Urgent Hospital Course (1) Hydronephrosis with renal calculous obstruction: Presented with left flank pain. CT demonstrated 3 mm obstructing stone at left UP junction with hydronephrosis. Associated UTI as discussed below. Received IV fluids and tamsulosin. Passed stone- sent for analysis. (2) Urinary tract infection: UA showed leukocyte esterase, nitrites, WBC's, bacteria. Received IV ceftriaxone. Urine culture growing E coli, sensitivities pending. Discharged on TMP / sulfa. (3) Abnormal CT of the abdomen: CT abdomen and pelvis performed for evaluation of ureteral calculus. Incidental finding: "A 9 mm hypodense lesion seen along the inferior aspect of the pancreatic tail. 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 Follow-up nonemergent pancreatic MRI can be used for confirmation." Discussed with patient. Will ask PCP to schedule outpatient MRI and arrange for follow-up if indicated. (4) Bradycardia: HR as low as 47. Asymptomatic. EKG demonstrate sinus bradycardia. Not on any rate-slowing meds. (5) DVT prophylaxis: Received enoxaparin. Ambulating. (6) Discharge planning issues: Discharge to home. Family Medicine follow-up with Dr. Ennis. Total Time Total Time Spent Total Time Spent (In Minutes): 35 Discharge Plan Discharge Items Patient Disposition: Home - Self-Care Reason For Visit: kidney stone, urinary tract infection Discharge Diagnosis: kidney stone, urinary tract infection Condition: Good Discharge Goals: Decrease discomfort and Improve disease control Activity: Resume your previous activity Non-emergency contact: Primary Care Provider and Hospitalist Call non-emergency contact if: you have any medication questions, your symptoms worsen and you have a fever Follow-up/Referrals: Lukas Tsai MD [Physician] - Stevie Ennis MD [Primary Care Provider] - (Office should contact you within a few days with an appointment. Please call if you do not hear from them.) Diet: Heart Healthy Addtl Provider Instructions: MEDICATION CHANGES: Take trimethoprim / sulfamethoxazole (Bactrim) twice a day until gone. (for urinary tract infection) SUMMARY OF TEST RESULTS: CT scan showed small kidney stone in left ureter. CT scan also showed small spot in pancreas. Outpatient MRI scan recommended. Will ask Dr. Ennis to schedule it for you. Urine culture shows infection, final report is pending. PENDING TEST RESULTS: Final report for urine culture. RECOMMENDATIONS FOR FOLLOW-UP: Urology follow-up in a few weeks as instructed. OTHER INSTRUCTIONS: Drink plenty of fluids. Protect your skin from sun exposure while taking antibiotic. Seek medical attention if you have: * temperature above 101 * chest pain or trouble breathing * abdominal pain, back pain, nausea, vomiting * diarrhea, dark stools or bloody stools * burning when you urinate or blood in stools * any unanswered questions or concerns Call 911 if symptoms are severe. Please take good care of yourself. Call if you have any questions or problems. You can reach a [facility] hospitalist on duty at [facility] 24 hours a day by calling [phone]. My cell # is [phone]. UROLOGY: Schedule appointment in 3-4 weeks to recheck imaging and plan follow up for stone management. Call office. May have blood in urine. May have pelvic discomfort. Call if any issues. Prescriptions: New sulfamethoxazole-trimethoprim [Bactrim DS] 800-160 mg tablet 1 tab PO BID 8 Days Qty: 16 RF: 0 Continued multivitamin Tablet 1 tab PO DAILY RF: 0 Stand-Alone Forms: My [facility] Discharge Orders: Discharge Order (Routine); Ordered 05/17/19 Ordered By: Loc Lepe Admission Data Admit Date/Time: 05/16/19 06:21 Attending Provider: Loc Lepe Admit Provider: Stef Jenkins Primary Care Provider: Stevie Ennis Other Providers: Lukas Tsai Service: Surgical Services Other Interventions: Discharge Summary Assessment (RN) Last Done: 05/17/19 12:52 DC Date/Time DO NOT enter until pt leaves facility: 05/17/19 13:50
[2019-05-22 10:07] LABS: Component 2 DNR; Source Kidney
== END 2019-05-17 13:50 | disposition home or self-care (01) | DRG 694 ==
LOC: ED 04:13 → 3N 06:21